=== PATIENT | male | born 1950 | race Caucasian/White ===

== ENCOUNTER 2017-07-12 10:50 | Inpatient (IN) | payer MEDICARE, MEDICAID ==
[2017-07-12] MEDS: Sodium Chloride 0.9% 5 ML Syringe FLUSH PRN (14:59)
[2017-07-12 15:10] LABS: CHLORIDE,CL 102 mmol/L (98-115); SODIUM,NA 140 mmol/L (136-145)
[2017-07-12] MEDS ORDERED: Insulin Aspart 100 Units/ML 3 ML Pen SUBCUT PRN (15:10)
[2017-07-12] MEDS ORDERED: hydrOXYzine HCl 25 MG Tab PO PRN (17:25)
[2017-07-12] MEDS ORDERED: ClonazePAM 0.5 MG Tab PO PRN (17:29)
[2017-07-12] MEDS ORDERED: Nitroglycerin 0.4 MG Tab.SL SL PRN (17:29)
[2017-07-12] MEDS ORDERED: Insulin Aspart 100 Units/ML 3 ML Pen SUBCUT SCH (17:30)
[2017-07-12] MEDS: hydrOXYzine HCl 25 MG Tab PO PRN (17:50)
[2017-07-12] MEDS ORDERED: diphenhydrAMINE 25 MG Cap PO PRN (18:52)
[2017-07-12] MEDS: Insulin Aspart 100 Units/ML 3 ML Pen SUBCUT SCH (19:16)
[2017-07-12] MEDS: Heparin Sodium 5,000 Units/ML Vial SUBCUT SCH (20:14)
[2017-07-12] MEDS: Acetaminophen 500 MG Tab PO PRN (20:22)
[2017-07-12] MEDS ORDERED: Insulin Detemir 100 Units/ML 3 ML Pen SUBCUT SCH (21:00)
[2017-07-12] MEDS: atorvaSTATin 40 MG Tab PO SCH (21:02)
[2017-07-12] MEDS: metroNIDAZOLE/Normal Saline 500 MG in Premix Bag 1 BAG IV SCH (21:38)
[2017-07-13] MEDS: hydrOXYzine HCl 25 MG Tab PO PRN ×2 (00:24→06:32)
[2017-07-13] MEDS: metroNIDAZOLE/Normal Saline 500 MG in Premix Bag 1 BAG IV SCH ×3 (05:01→22:24)
[2017-07-13] MEDS ORDERED: glipiZIDE 5 MG Tab.ER PO SCH (07:30)
[2017-07-13] MEDS: Heparin Sodium 5,000 Units/ML Vial SUBCUT SCH ×2 (07:56→20:17)
[2017-07-13] MEDS: Insulin Aspart 100 Units/ML 3 ML Pen SUBCUT SCH ×3 (07:56→17:58)
[2017-07-13] MEDS: Acetaminophen 500 MG Tab PO PRN (07:58)
[2017-07-13] MEDS: Clopidogrel 75 MG Tab PO SCH (08:33)
[2017-07-13] MEDS: Aspirin 81 MG Tab.EC PO SCH (08:33)
[2017-07-13] MEDS: Hydrochlorothiazide 25 MG Tab PO SCH (08:33)
[2017-07-13] MEDS: Multivitamins with Minerals/Iron/Folic Acid/Lycopene Tab PO SCH (08:33)
[2017-07-13] MEDS: Lisinopril 20 MG Tab PO SCH (08:34)
[2017-07-13] MEDS: Metoprolol Succinate 50 MG Tab.ER PO SCH (08:34)
[2017-07-13] MEDS: Cyanocobalamin (Vitamin B12) 500 MCG Tab PO SCH (08:34)
--- NOTE | 2017-07-13 08:50 | PCM.PN ---
- General Info Date of Service: 07/13/17 Admission Dx/Problem (Free Text): Mr. Ortiz reports that his foot seems to be doing a little better today without any further drainage from the toe and improvement in redness of the foot. Continues to have erythema more proximally. Biggest concern this morning is regarding diffuse itching and dermatitis that has developed since admission. Nursing reports that this was mildly present yesterday on admission most prominent on the upper extremities which was thought to be due to clindamycin which was added as a drug allergy, but the patient is unsure about the timeline. Regardless, he states that the rash and itching is considerably worse today. Wonders when he will be able to go home, and in particular wonders if he can leave to go to a volleyball match today. Admits to generalized malaise and pruritis. Denies fever, chills, headache, sore throat, tongue swelling, shortness of breath, chest pain, or other new concerns. - Patient Data Vitals - Most Recent: Last Vital Signs Temp 37.4 C 07/13/17 06:51 Pulse 81 07/13/17 08:34 Resp 20 07/13/17 06:51 BP 132/64 07/13/17 08:34 Pulse Ox 96 07/13/17 06:51 Weight - Most Recent: 135.624 kg I&O - Last 24 Hours: Intake & Output 07/12/17 07/13/17 07/13/17 22:59 06:59 14:59 Intake Total 922 200 Balance 922 200 Lab Results Last 24 Hours: Laboratory Results - last 24 hr 07/12/17 07/12/17 07/12/17 Range/Units 14:30 14:30 14:30 WBC 10.0 (5.0-10.0) 10^3/uL RBC 3.43 L (4.50-6.00) 10^6/uL Hgb 9.1 L (13.0-17.0) g/dL Hct 28.8 L (40.0-52.0) % MCV 83.8 (82.0-92.0) fL MCH 26.6 L (27.0-31.0) pg MCHC 31.7 L (32.0-36.0) g/dL RDW 13.6 (11.5-14.5) % Plt Count 360 H (150-300) 10^3/uL MPV 6.4 L (7.4-10.4) fL Neut % (Auto) 78.4 H (50.0-70.0) % Lymph % (Auto) 9.3 L (20.0-40.0) % Dawson % (Auto) 8.3 H (2.0-8.0) % Eos % (Auto) 3.8 H (1.0-3.0) % Baso % (Auto) 0.2 (0.0-1.0) % Neut # (Auto) 7.9 H (2.5-7.0) 10^3/uL Lymph # (Auto) 0.9 L (1.0-4.0) 10^3/uL Dawson # (Auto) 0.8 (0.1-0.8) 10^3/uL Eos # (Auto) 0.4 H (0.1-0.3) 10^3/uL Baso # (Auto) 0.0 (0.0-0.1) 10^3/uL ESR 40 H (0-15) mm/hr Sodium 140 (136-145) mmol/L Potassium 3.7 (3.3-5.3) mmol/L Chloride 102 (98-115) mmol/L Carbon Dioxide 24.3 (21.0-32.0) mmol/L BUN 12 (6-25) mg/dL Creatinine 0.77 (0.51-1.17) mg/dL Est Cr Clr Drug Dosing 118.99 mL/min Estimated GFR (MDRD) > 60 mL/min Glucose 253 H (70-110) mg/dL POC Glucose (74-106) mg/dl Uric Acid (2.6-7.2) mg/dL Calcium 8.5 L (8.7-10.3) mg/dL Total Bilirubin 0.3 (0.2-1.0) mg/dL AST 35 (15-37) U/L ALT 48 (12-78) U/L Alkaline Phosphatase 103 (46-116) IU/L Total Protein 6.5 (6.4-8.2) g/dL Albumin 3.06 (3.00-4.80) g/dL 07/12/17 07/12/17 07/13/17 Range/Units 14:30 17:19 06:29 WBC (5.0-10.0) 10^3/uL RBC (4.50-6.00) 10^6/uL Hgb (13.0-17.0) g/dL Hct (40.0-52.0) % MCV (82.0-92.0) fL MCH (27.0-31.0) pg MCHC (32.0-36.0) g/dL RDW (11.5-14.5) % Plt Count (150-300) 10^3/uL MPV (7.4-10.4) fL Neut % (Auto) (50.0-70.0) % Lymph % (Auto) (20.0-40.0) % Dawson % (Auto) (2.0-8.0) % Eos % (Auto) (1.0-3.0) % Baso % (Auto) (0.0-1.0) % Neut # (Auto) (2.5-7.0) 10^3/uL Lymph # (Auto) (1.0-4.0) 10^3/uL Dawson # (Auto) (0.1-0.8) 10^3/uL Eos # (Auto) (0.1-0.3) 10^3/uL Baso # (Auto) (0.0-0.1) 10^3/uL ESR (0-15) mm/hr Sodium (136-145) mmol/L Potassium (3.3-5.3) mmol/L Chloride (98-115) mmol/L Carbon Dioxide (21.0-32.0) mmol/L BUN (6-25) mg/dL Creatinine (0.51-1.17) mg/dL Est Cr Clr Drug Dosing mL/min Estimated GFR (MDRD) mL/min Glucose (70-110) mg/dL POC Glucose 207 H 215 H (74-106) mg/dl Uric Acid 4.2 (2.6-7.2) mg/dL Calcium (8.7-10.3) mg/dL Total Bilirubin (0.2-1.0) mg/dL AST (15-37) U/L ALT (12-78) U/L Alkaline Phosphatase (46-116) IU/L Total Protein (6.4-8.2) g/dL Albumin (3.00-4.80) g/dL 07/13/17 Range/Units 07:10 WBC 9.2 (5.0-10.0) 10^3/uL RBC 3.53 L (4.50-6.00) 10^6/uL Hgb 9.0 L (13.0-17.0) g/dL Hct 29.4 L (40.0-52.0) % MCV 83.5 (82.0-92.0) fL MCH 25.5 L (27.0-31.0) pg MCHC 30.6 L (32.0-36.0) g/dL RDW 13.5 (11.5-14.5) % Plt Count 369 H (150-300) 10^3/uL MPV 7.1 L (7.4-10.4) fL Neut % (Auto) (50.0-70.0) % Lymph % (Auto) (20.0-40.0) % Dawson % (Auto) (2.0-8.0) % Eos % (Auto) (1.0-3.0) % Baso % (Auto) (0.0-1.0) % Neut # (Auto) (2.5-7.0) 10^3/uL Lymph # (Auto) (1.0-4.0) 10^3/uL Dawson # (Auto) (0.1-0.8) 10^3/uL Eos # (Auto) (0.1-0.3) 10^3/uL Baso # (Auto) (0.0-0.1) 10^3/uL ESR 37 H (0-15) mm/hr Sodium (136-145) mmol/L Potassium (3.3-5.3) mmol/L Chloride (98-115) mmol/L Carbon Dioxide (21.0-32.0) mmol/L BUN (6-25) mg/dL Creatinine (0.51-1.17) mg/dL Est Cr Clr Drug Dosing mL/min Estimated GFR (MDRD) mL/min Glucose (70-110) mg/dL POC Glucose (74-106) mg/dl Uric Acid (2.6-7.2) mg/dL Calcium (8.7-10.3) mg/dL Total Bilirubin (0.2-1.0) mg/dL AST (15-37) U/L ALT (12-78) U/L Alkaline Phosphatase (46-116) IU/L Total Protein (6.4-8.2) g/dL Albumin (3.00-4.80) g/dL Med Orders - Current: Current Medications Acetaminophen (Tylenol Extra Strength) 500 mg PO Q4H PRN PRN Reason: Pain/Fever Last Admin: 07/13/17 07:58 Dose: 500 mg Aspirin (Halfprin) 81 mg PO DAILY [facility] Last Admin: 07/13/17 08:33 Dose: 81 mg Atorvastatin Calcium (Lipitor) 40 mg PO BEDTIME [facility] Last Admin: 07/12/17 21:02 Dose: 40 mg Clonazepam (Klonopin) 0.5 mg PO BEDTIME PRN PRN Reason: Insomnia Clopidogrel Bisulfate (Plavix) 75 mg PO DAILY [facility] Last Admin: 07/13/17 08:33 Dose: 75 mg Cyanocobalamin (Vitamin B12) 1,000 mcg PO DAILY [facility] Last Admin: 07/13/17 08:34 Dose: 1,000 mcg Glipizide (Glucotrol Xl) 10 mg PO ACBREAKFAST [facility] Last Admin: 07/13/17 07:56 Dose: 10 mg Heparin Sodium (Porcine) (Heparin Sodium) 5,000 units SUBCUT Q12H [facility] Last Admin: 07/13/17 07:56 Dose: 5,000 units Hydrochlorothiazide (Hydrochlorothiazide) 25 mg PO DAILY [facility] Last Admin: 07/13/17 08:33 Dose: 25 mg Hydroxyzine HCl (Atarax) 25 mg PO Q6H PRN PRN Reason: Itching Last Admin: 07/13/17 06:32 Dose: 25 mg Vancomycin HCl 1.5 gm/ Sodium (Chloride) 280 mls @ 112 mls/hr IV Q12H [facility] Last Admin: 07/13/17 06:30 Dose: 112 mls/hr Metronidazole 500 mg/ Premix 100 mls @ 100 mls/hr IV Q8H [facility] Last Admin: 07/13/17 05:01 Dose: 100 mls/hr Insulin Aspart (Novolog) 0 unit SUBCUT TIDMEALS [facility] PRN Reason: Protocol Last Admin: 07/13/17 07:56 Dose: 6 units Insulin Detemir (Levemir) 68 unit SUBCUT BEDTIME [facility] Last Admin: 07/12/17 21:03 Dose: 68 units Lisinopril (Prinivil) 20 mg PO DAILY [facility] Last Admin: 07/13/17 08:34 Dose: 20 mg Metoprolol Succinate (Toprol Xl) 50 mg PO DAILY [facility] Last Admin: 07/13/17 08:34 Dose: 50 mg Multivitamins/Minerals (Centrum) 1 tab PO DAILY [facility] Last Admin: 07/13/17 08:33 Dose: 1 tab Nitroglycerin (Nitrostat) 0.4 mg SL Q5M PRN PRN Reason: Chest Pain Sodium Chloride (Syrex Flush) 5 ml FLUSH Q8HR PRN PRN Reason: Keep Vein Open Last Admin: 07/12/17 14:59 Dose: 5 ml Vancomycin HCl (Pharmacy To Dose - Vancomycin) 1 dose .XX ASDIRECTED [facility] Discontinued Medications Diphenhydramine HCl (Benadryl) 25 mg PO Q6H PRN PRN Reason: Itching Hydroxyzine HCl (Atarax) 25 mg PO Q4H PRN PRN Reason: Itching Vancomycin HCl 1.5 gm/ Sodium (Chloride) 280 mls @ 112 mls/hr IV Q12H [facility] Last Admin: 07/12/17 14:58 Dose: 112 mls/hr Insulin Aspart (Novolog) 0 unit SUBCUT TIDAC PRN; Protocol PRN Reason: Blood Glucose Last Admin: 07/12/17 17:51 Dose: 6 unit - Exam Physical Findings Comments:: GENERAL: Uncomfortable-appearing adult male sitting in bedside chair in no acute distress. HEENT: Normocephalic, atraumatic. Conjunctiva clear. Mucous membranes moist, posterior pharynx unremarkable. NECK: Supple, no masses. CV: Regular rate and rhythm, no murmurs, rubs, or gallops. 2+ radial pulses. PULMONARY: Normal effort, clear to auscultation bilaterally, no wheezes, rales, or rhonchi. ABDOMEN: Positive bowel sounds, soft, nontender, nondistended. MUSCULOSKELETAL: Moves all extremities. NEUROLOGICAL: No obvious deficits. CN II-XII intact. Poor sensation to touch in bilateral distal lower extremities. DERMATOLOGIC: RLE with 1+ pitting edema of the leg, ankle, and foot with minimal warmth and diffuse seun color. Right great toe with 1.25cm dried eschar without drainage. Diffuse papular blanching dermatitis of bilateral upper extremities, torso, and bilateral lower extremities. PSYCHIATRIC: Alert, interactive. - Problem List Review Problem List Initiated/Reviewed/Updated: Yes - My Orders Last 24 Hours: My Active Orders 07/12/17 19:14 Acetaminophen [Tylenol Extra Strength] 500 mg PO Q4H PRN 07/13/17 06:00 Vancomycin 1.5 gm Sodium Chloride 0.9% [Normal Saline] 250 ml IV Q12H 07/13/17 07:10 CBC WITH MANUAL DIFF [HEME] AM ESR [SEDIMENTATION RATE MANUAL] [HEME] AM 07/13/17 08:42 Guaiac [OCCULT BLOOD DIAGNOSTIC] [OP] Routine 07/14/17 05:11 BASIC METABOLIC PANEL,BMP [CHEM] AM CBC WITH AUTO DIFF [HEME] AM ESR [SEDIMENTATION RATE MANUAL] [HEME] AM FOLATE [REF] Routine IRON PNL (FE, TIBC, WENCESLAO, %SAT) [REF] Routine VITAMIN B12 [REF] Routine 07/14/17 05:30 VANCOMYCIN TROUGH [CHEM] Routine - Assessment Assessment:: 66yoM with hx of uncontrolled DMT2, HTN, HLD, CAD, and obesity admitted 07/12/17 for RLE diabetic foot ulcer and cellulitis. # RLE diabetic foot ulcer and cellulitis: Interval improvement in cellulitis and R toe without drainage or progression of eschar. Also improvement in WBC and ESR. Blood cultures with no growth thus far and wound culture pending. XR without abnormality. Due to concern for drug-induced dermatitis (see below), will change vancomycin to linezolid and continue metronidazole. Recheck CB and ESR tomorrow. Consider MRI in 2 days, when available, if not having ongoing improvement and concern for osteomyelitis. Continue nonweight bearing. PT would like to defer ordering boot and proceeding with therapy until improvement in clinical status. Plan for outpatient podiatry follow-up. # Dermatitis: Diffuse recent-onset dermatitis consistent with drug eruption. There is question if this was mildly present on admission and clindamycin was subsequently added to his allergies. The patient is unsure of the timeline, but regardless the dermatitis has become more widespread and severe since admission. New medications include vancomycin and metronidazole, of which vancomycin would be more likely associated with drug eruption, so will change to linezolid and provide symptomatic treatment with H1 and H2 antagonists diphenhydramine and famotidine. Would like to hold off on any glucocorticoid treatment given current infection and uncontrolled diabetes. # DMT2: Uncontrolled with A1c 9.1 and BGs here running in the 200s despite home regimen of insulin detemir and high dose ISS. Home regimen also includes glipizide, though patient has an allergy to sulfa medications and may be playing a role in drug eruption, so will hold tomorrow. Holding metformin in the event imaging is needed, but will consider reinitiation in the near future. Will increase insulin detemir from 68 to 74 units and continue with high dose ISS. # Anemia: Hgb 9. New onset, normocytic anemia without known active bleeding. Obtain stool guiac, iron panel, B12, and folate. Recheck tomorrow. Continue B12 supplementation and MV. Chronic conditions: # CAD: S/P PCI to LAD. No angina. Continue Plavix, ASA, statin, and BB. # HTN: BPs well controlled. Continue HCTZ, lisinopril, and metoprolol succinate. # HLD: Continue atorvastatin. # Obesity: BMI 36. # Anxiety: Continue clonazepam prn. Hospitalization details: # FEN: No IVF. Electrolytes normal; recheck tomorrow. Diabetic/cardiac diet. # PPX: High risk of DVT=Heparin 5000un q12h. # Code status: Full. # Emergency contact: . # Disposition: Continue on inpatient status. Anticipate eventual discharge to home once improvement in acute hospitalization issues.
[2017-07-13] MEDS ORDERED: diphenhydrAMINE 50 MG/ML SDV IVPUSH PRN ×2 (09:41→17:43)
[2017-07-13] MEDS: Famotidine 20 MG/2 ML SDV IVPUSH SCH ×2 (10:38→21:07)
[2017-07-13] MEDS: Sodium Chloride 0.9% 250 ML IV SCH (14:01)
[2017-07-13] MEDS ORDERED: Linezolid 600 MG Tab PO SCH (21:00)
[2017-07-13] MEDS ORDERED: Insulin Detemir 100 Units/ML 3 ML Pen SUBCUT SCH (21:00)
[2017-07-13] MEDS: atorvaSTATin 40 MG Tab PO SCH (21:07)
[2017-07-13] MEDS ORDERED: predniSONE 10 MG Tab PO ONE (22:07)
[2017-07-13] MEDS: diphenhydrAMINE 50 MG/ML SDV IVPUSH PRN (22:25)
[2017-07-14] MEDS: diphenhydrAMINE 50 MG/ML SDV IVPUSH PRN (04:58)
[2017-07-14] MEDS: metroNIDAZOLE/Normal Saline 500 MG in Premix Bag 1 BAG IV SCH ×2 (04:59→14:14)
[2017-07-14] MEDS: Heparin Sodium 5,000 Units/ML Vial SUBCUT SCH ×2 (07:54→21:10)
[2017-07-14] MEDS: Insulin Aspart 100 Units/ML 3 ML Pen SUBCUT SCH ×4 (07:57→21:23)
[2017-07-14 08:20] LABS: CHLORIDE,CL 99 mmol/L (98-115); SODIUM,NA 135 mmol/L (136-145)
[2017-07-14] MEDS: Multivitamins with Minerals/Iron/Folic Acid/Lycopene Tab PO SCH (08:24)
[2017-07-14] MEDS: Cyanocobalamin (Vitamin B12) 500 MCG Tab PO SCH (08:24)
[2017-07-14] MEDS: Aspirin 81 MG Tab.EC PO SCH (08:25)
[2017-07-14] MEDS: Lisinopril 20 MG Tab PO SCH (08:25)
[2017-07-14] MEDS: Clopidogrel 75 MG Tab PO SCH (08:25)
[2017-07-14] MEDS: Hydrochlorothiazide 25 MG Tab PO SCH (08:25)
[2017-07-14] MEDS: Famotidine 20 MG/2 ML SDV IVPUSH SCH ×2 (08:26→21:42)
[2017-07-14] MEDS: Metoprolol Succinate 50 MG Tab.ER PO SCH (08:26)
[2017-07-14] MEDS: metFORMIN 500 MG Tab.ER PO SCH ×2 (09:38→17:50)
[2017-07-14] MEDS: predniSONE 20 MG Tab PO SCH (09:38)
[2017-07-14] MEDS: Calamine/Zinc Oxide Lotion 118 ML Bottle TOP PRN ×2 (10:44→16:00)
--- NOTE | 2017-07-14 12:36 | PCM.PN ---
- General Info Date of Service: 07/14/17 Admission Dx/Problem (Free Text): In the last 24 hours, he had continued diffuse dermatitis and itching thought to be secondary to a drug eruption for which he was having severe symptoms despite diphenhydramine and famotidine. He was given a dose of prednisone 40mg last night which improved his symptoms. Mr. Ortiz reports this morning that his foot continues to be doing a little better today without any further drainage from the toe and improvement in redness of the foot, but he continues to have diffuse dermatitis and itching. He denies worsening in the rash and admits it may be improving a bit. Denies fever, chills, headache, sore throat, tongue swelling, shortness of breath, chest pain, or other new concerns. No nursing concerns. - Patient Data Vitals - Most Recent: Last Vital Signs Temp 36.2 C 07/14/17 06:06 Pulse 77 07/14/17 08:26 Resp 18 07/14/17 06:06 BP 140/75 07/14/17 08:26 Pulse Ox 97 07/14/17 06:30 Weight - Most Recent: 135.624 kg I&O - Last 24 Hours: Intake & Output 07/13/17 07/14/17 07/14/17 22:59 06:59 14:59 Intake Total 1175 250 Balance 1175 250 Lab Results Last 24 Hours: Laboratory Results - last 24 hr 07/13/17 07/13/17 07/14/17 Range/Units 17:18 21:05 06:15 WBC (5.0-10.0) 10^3/uL RBC (4.50-6.00) 10^6/uL Hgb (13.0-17.0) g/dL Hct (40.0-52.0) % MCV (82.0-92.0) fL MCH (27.0-31.0) pg MCHC (32.0-36.0) g/dL RDW (11.5-14.5) % Plt Count (150-300) 10^3/uL MPV (7.4-10.4) fL Neut % (Auto) (50.0-70.0) % Lymph % (Auto) (20.0-40.0) % [place] % (Auto) (2.0-8.0) % Eos % (Auto) (1.0-3.0) % Baso % (Auto) (0.0-1.0) % Neut # (Auto) (2.5-7.0) 10^3/uL Lymph # (Auto) (1.0-4.0) 10^3/uL [place] # (Auto) (0.1-0.8) 10^3/uL Eos # (Auto) (0.1-0.3) 10^3/uL Baso # (Auto) (0.0-0.1) 10^3/uL ESR (0-15) mm/hr Sodium (136-145) mmol/L Potassium (3.3-5.3) mmol/L Chloride (98-115) mmol/L Carbon Dioxide (21.0-32.0) mmol/L BUN (6-25) mg/dL Creatinine (0.51-1.17) mg/dL Est Cr Clr Drug Dosing mL/min Estimated GFR (MDRD) mL/min Glucose (70-110) mg/dL POC Glucose 276 H 283 H 302 H (74-106) mg/dl Calcium (8.7-10.3) mg/dL 07/14/17 07/14/17 07/14/17 Range/Units 07:25 07:30 11:17 WBC 11.6 H (5.0-10.0) 10^3/uL RBC 3.57 L (4.50-6.00) 10^6/uL Hgb 9.2 L (13.0-17.0) g/dL Hct 30.0 L (40.0-52.0) % MCV 84.2 (82.0-92.0) fL MCH 25.8 L (27.0-31.0) pg MCHC 30.6 L (32.0-36.0) g/dL RDW 13.4 (11.5-14.5) % Plt Count 384 H (150-300) 10^3/uL MPV 7.2 L (7.4-10.4) fL Neut % (Auto) 92.0 H (50.0-70.0) % Lymph % (Auto) 4.8 L (20.0-40.0) % [place] % (Auto) 2.6 (2.0-8.0) % Eos % (Auto) 0.5 L (1.0-3.0) % Baso % (Auto) 0.1 (0.0-1.0) % Neut # (Auto) 10.6 H (2.5-7.0) 10^3/uL Lymph # (Auto) 0.6 L (1.0-4.0) 10^3/uL [place] # (Auto) 0.3 (0.1-0.8) 10^3/uL Eos # (Auto) 0.1 (0.1-0.3) 10^3/uL Baso # (Auto) 0.0 (0.0-0.1) 10^3/uL ESR 50 H (0-15) mm/hr Sodium 135 L (136-145) mmol/L Potassium 4.2 (3.3-5.3) mmol/L Chloride 99 (98-115) mmol/L Carbon Dioxide 25.2 (21.0-32.0) mmol/L BUN 11 (6-25) mg/dL Creatinine 0.88 (0.51-1.17) mg/dL Est Cr Clr Drug Dosing 104.12 mL/min Estimated GFR (MDRD) > 60 mL/min Glucose 310 H (70-110) mg/dL POC Glucose 290 H (74-106) mg/dl Calcium 8.6 L (8.7-10.3) mg/dL Timmy Results Last 24 Hours: Microbiology 07/12/17 13:48 Wound Culture - Final Foot, Right Staphylococcus Aureus 07/12/17 14:30 Aerobic Blood Culture - Preliminary Blood NO GROWTH AFTER 1 DAY Anaerobic Blood Culture - Preliminary NO GROWTH AFTER 1 DAY Med Orders - Current: Current Medications Acetaminophen (Tylenol Extra Strength) 500 mg PO Q4H PRN PRN Reason: Pain/Fever Last Admin: 07/13/17 07:58 Dose: 500 mg Aspirin (Halfprin) 81 mg PO DAILY [facility] Last Admin: 07/14/17 08:25 Dose: 81 mg Atorvastatin Calcium (Lipitor) 40 mg PO BEDTIME [facility] Last Admin: 07/13/17 21:07 Dose: 40 mg Calamine/Zinc Oxide (Calamine Lotion) 0 ml TOP ASDIRECTED PRN PRN Reason: Itching Last Admin: 07/14/17 10:44 Dose: 1 applic Clonazepam (Klonopin) 0.5 mg PO BEDTIME PRN PRN Reason: Insomnia Last Admin: 07/13/17 22:25 Dose: 0.5 mg Clopidogrel Bisulfate (Plavix) 75 mg PO DAILY [facility] Last Admin: 07/14/17 08:25 Dose: 75 mg Cyanocobalamin (Vitamin B12) 1,000 mcg PO DAILY [facility] Last Admin: 07/14/17 08:24 Dose: 1,000 mcg Diphenhydramine HCl (Benadryl) 50 mg IVPUSH Q4H PRN PRN Reason: Itching Last Admin: 07/14/17 04:58 Dose: 50 mg Famotidine (Pepcid) 20 mg IVPUSH BID [facility] Last Admin: 07/14/17 08:26 Dose: 20 mg Heparin Sodium (Porcine) (Heparin Sodium) 5,000 units SUBCUT Q12H [facility] Last Admin: 07/14/17 07:54 Dose: 5,000 units Hydrochlorothiazide (Hydrochlorothiazide) 25 mg PO DAILY [facility] Last Admin: 07/14/17 08:25 Dose: 25 mg Metronidazole 500 mg/ Premix 100 mls @ 100 mls/hr IV Q8H [facility] Last Admin: 07/14/17 04:59 Dose: 100 mls/hr Sodium Chloride (Normal Saline) 250 mls @ 20 mls/hr IV DAILY@1400 [facility] Last Admin: 07/13/17 14:01 Dose: 20 mls/hr Linezolid (Zyvox) 300 mls @ 150 mls/hr IV Q12H [facility] Last Admin: 07/14/17 09:38 Dose: 150 mls/hr Insulin Aspart (Novolog) 0 unit SUBCUT WITHMEALSANDBED [facility] PRN Reason: Protocol Last Admin: 07/14/17 11:58 Dose: 9 units Insulin Detemir (Levemir) 80 unit SUBCUT BEDTIME [facility] Lisinopril (Prinivil) 20 mg PO DAILY [facility] Last Admin: 07/14/17 08:25 Dose: 20 mg Metformin HCl (Glucophage Xr) 1,000 mg PO BIDMEALS [facility] Last Admin: 07/14/17 09:38 Dose: 1,000 mg Metoprolol Succinate (Toprol Xl) 50 mg PO DAILY [facility] Last Admin: 07/14/17 08:26 Dose: 50 mg Multivitamins/Minerals (Centrum) 1 tab PO DAILY [facility] Last Admin: 07/14/17 08:24 Dose: 1 tab Nitroglycerin (Nitrostat) 0.4 mg SL Q5M PRN PRN Reason: Chest Pain Omeprazole (Omeprazole) 20 mg PO DAILY [facility] Prednisone (Prednisone) 40 mg PO WITHBREAKFAST [facility] Last Admin: 07/14/17 09:38 Dose: 40 mg Sodium Chloride (Syrex Flush) 5 ml FLUSH Q8HR PRN PRN Reason: Keep Vein Open Last Admin: 07/12/17 14:59 Dose: 5 ml Discontinued Medications Diphenhydramine HCl (Benadryl) 25 mg PO Q6H PRN PRN Reason: Itching Diphenhydramine HCl (Benadryl) 50 mg IVPUSH Q8H PRN PRN Reason: Itching Last Admin: 07/13/17 10:38 Dose: 50 mg Diphenhydramine HCl (Benadryl) 50 mg IVPUSH Q6H PRN PRN Reason: Itching Last Admin: 07/13/17 18:02 Dose: 50 mg Glipizide (Glucotrol Xl) 10 mg PO ACBREAKFAST [facility] Last Admin: 07/13/17 07:56 Dose: 10 mg Hydroxyzine HCl (Atarax) 25 mg PO Q4H PRN PRN Reason: Itching Hydroxyzine HCl (Atarax) 25 mg PO Q6H PRN PRN Reason: Itching Last Admin: 07/13/17 06:32 Dose: 25 mg Vancomycin HCl 1.5 gm/ Sodium (Chloride) 280 mls @ 112 mls/hr IV Q12H [facility] Last Admin: 07/12/17 14:58 Dose: 112 mls/hr Vancomycin HCl 1.5 gm/ Sodium (Chloride) 280 mls @ 112 mls/hr IV Q12H [facility] Last Admin: 07/13/17 06:30 Dose: 112 mls/hr Insulin Aspart (Novolog) 0 unit SUBCUT TIDAC PRN; Protocol PRN Reason: Blood Glucose Last Admin: 07/12/17 17:51 Dose: 6 unit Insulin Aspart (Novolog) 0 unit SUBCUT TIDMEALS [facility] PRN Reason: Protocol Last Admin: 07/14/17 07:57 Dose: 12 units Insulin Detemir (Levemir) 68 unit SUBCUT BEDTIME [facility] Last Admin: 07/12/17 21:03 Dose: 68 units Insulin Detemir (Levemir) 74 unit SUBCUT BEDTIME [facility] Last Admin: 07/13/17 21:06 Dose: 74 units Prednisone (Prednisone) 40 mg PO ONETIME ONE Stop: 07/13/17 22:08 Last Admin: 07/13/17 22:25 Dose: 40 mg Vancomycin HCl (Pharmacy To Dose - Vancomycin) 1 dose .XX ASDIRECTED [facility] - Exam Physical Findings Comments:: GENERAL: Mildly cantankerous adult male sitting in bedside chair in no acute distress. HEENT: Normocephalic, atraumatic. Conjunctiva clear. Mucous membranes moist, posterior pharynx unremarkable. NECK: Supple, no masses. CV: Regular rate and rhythm, no murmurs, rubs, or gallops. 2+ radial pulses. PULMONARY: Normal effort, clear to auscultation bilaterally, no wheezes, rales, or rhonchi. ABDOMEN: Positive bowel sounds, soft, nontender, nondistended. MUSCULOSKELETAL: Moves all extremities. NEUROLOGICAL: No obvious deficits. DERMATOLOGIC: RLE with 1+ pitting edema of the leg, ankle, and foot with overlying redness, but no warmth, and with interval improvement in area affected since evaluation yesterday. Right great toe with 1.25cm dried eschar without drainage and no tenderness to palpation of toe. Diffuse papular blanching dermatitis of bilateral upper extremities, torso, and bilateral lower extremities. PSYCHIATRIC: Alert, interactive. - Problem List Review Problem List Initiated/Reviewed/Updated: Yes - My Orders Last 24 Hours: My Active Orders 07/13/17 20:00 Linezolid [Zyvox] 300 ml IV Q12H 07/13/17 22:08 diphenhydrAMINE [Benadryl] 50 mg IVPUSH Q4H PRN 07/14/17 05:11 FOLATE [REF] Routine IRON PNL (FE, TIBC, WENCESLAO, %SAT) [REF] Routine VITAMIN B12 [REF] Routine 07/14/17 09:15 metFORMIN [Glucophage XR] 1,000 mg PO BIDMEALS 07/14/17 09:16 Calamine/Zinc Oxide [Calamine Lotion] See Dose Instructions TOP ASDIRECTED PRN Insulin Detemir [Levemir] 80 unit SUBCUT BEDTIME 07/14/17 09:23 Blood Glucose Check, Bedside [RC] QIDACANDBED 07/14/17 09:30 predniSONE 40 mg PO WITHBREAKFAST 07/14/17 12:00 Insulin Aspart [NovoLOG] See Protocol SUBCUT WITHMEALSANDBED 07/15/17 09:00 Omeprazole 20 mg PO DAILY - Assessment Assessment:: 66yoM with hx of uncontrolled DMT2, HTN, HLD, CAD, and obesity admitted 07/12/17 for RLE diabetic foot ulcer and cellulitis. # RLE diabetic foot ulcer and cellulitis: Interval improvement in cellulitis and R toe without drainage or progression of eschar. Slight worsening of WBC and ESR, likely secondary to prednisone initiation, as below. Blood cultures with no growth x2 days and wound culture with preliminary reading of Staph. aureus. XR without abnormality. Venous ultrasound pending. Due to concern for drug-induced dermatitis (see below), vancomycin was changed to linezolid on . D/c metronidazole given Staph growing on culture. Recheck CBC and ESR tomorrow. If continued improvement, will liberate weightbearing and consider PT evaluation tomorrow if warranted. Plan for outpatient podiatry follow-up. # Drug eruption: Diffuse dermatitis consistent with drug eruption. This was mildly present on admission and clindamycin was subsequently added to his allergies. Despite cessation of clindamycin, the dermatitis became more widespread and severe, likely secondary to vancomycin which he had never had before. Symptomatic treatment with H1 and H2 antagonists diphenhydramine and famotidine initiated, but not adequate at symptom control so prednisone started. Discussed the hesitation of steroids given current infection and uncontrolled diabetes, but given the severity of the eruption and lack of successful control with non-steroid medications, will proceed with prednisone 40mg daily. Will also provide calamine lotion at the patient's request. # DMT2: Uncontrolled with A1c 9.1 and BGs here running in the 200s despite home regimen of insulin detemir and high dose ISS. Anticipate worsening with initiation of steroids, as above. Holding glipidize given sulfa allergy, though he states he has been taking this for years. Restart metformin. Increase insulin detemir from 74 to 80 units and high dose ISS with meals and also bedtime. # Anemia: Hgb 9. New onset, normocytic anemia without known active bleeding. Stool guiac negative. Iron panel, B12, and folate pending. Recheck tomorrow. Continue B12 supplementation and MV. Chronic conditions: # CAD: S/P PCI to LAD. No angina. Continue Plavix, ASA, statin, and BB. # HTN: BPs well controlled. Continue HCTZ, lisinopril, and metoprolol succinate. # HLD: Continue atorvastatin. # Obesity: BMI 36. # Anxiety: Continue clonazepam prn. Hospitalization details: # FEN: No IVF. Electrolytes normal; recheck tomorrow. Diabetic/cardiac diet. # PPX: High risk of DVT=Heparin 5000un q12h. # Code status: Full. # Emergency contact: . # Disposition: Continue on inpatient status. Anticipate eventual discharge to home once improvement in acute hospitalization issues.
[2017-07-14] MEDS: Sodium Chloride 0.9% 250 ML IV SCH (14:14)
[2017-07-14] MEDS: atorvaSTATin 40 MG Tab PO SCH (21:10)
[2017-07-14] MEDS: Insulin Detemir 100 Units/ML 3 ML Pen SUBCUT SCH (21:24)
[2017-07-15] MEDS: predniSONE 20 MG Tab PO SCH (07:56)
[2017-07-15] MEDS: metFORMIN 500 MG Tab.ER PO SCH ×2 (07:56→17:41)
[2017-07-15] MEDS: Heparin Sodium 5,000 Units/ML Vial SUBCUT SCH ×2 (07:57→21:19)
[2017-07-15] MEDS: Insulin Aspart 100 Units/ML 3 ML Pen SUBCUT SCH ×4 (07:57→21:32)
[2017-07-15 08:17] LABS: CHLORIDE,CL 99 mmol/L (98-115); SODIUM,NA 136 mmol/L (136-145)
[2017-07-15] MEDS: Famotidine 20 MG/2 ML SDV IVPUSH SCH (08:55)
[2017-07-15] MEDS: Sodium Chloride 0.9% 5 ML Syringe FLUSH PRN (08:57)
[2017-07-15] MEDS: Clopidogrel 75 MG Tab PO SCH (08:59)
[2017-07-15] MEDS: Cyanocobalamin (Vitamin B12) 500 MCG Tab PO SCH (08:59)
[2017-07-15] MEDS: Aspirin 81 MG Tab.EC PO SCH (08:59)
[2017-07-15] MEDS: Multivitamins with Minerals/Iron/Folic Acid/Lycopene Tab PO SCH (08:59)
[2017-07-15] MEDS ORDERED: Omeprazole 20 MG Cap.CR PO SCH (09:00)
[2017-07-15] MEDS: Metoprolol Succinate 50 MG Tab.ER PO SCH (09:37)
[2017-07-15] MEDS: Hydrochlorothiazide 25 MG Tab PO SCH (09:37)
[2017-07-15] MEDS: Lisinopril 20 MG Tab PO SCH (09:37)
[2017-07-15] MEDS ORDERED: diphenhydrAMINE 25 MG Cap PO PRN (09:42)
[2017-07-15] MEDS: Linezolid 600 MG Tab PO SCH ×2 (10:00→21:43)
[2017-07-15] MEDS ORDERED: Linezolid 600 MG in Premix Bag 1 BAG IV ONE (10:00)
[2017-07-15] MEDS: glipiZIDE 5 MG Tab.ER PO SCH (10:12)
[2017-07-15] MEDS: Acetaminophen 500 MG Tab PO PRN (17:43)
[2017-07-15] MEDS: Insulin Detemir 100 Units/ML 3 ML Pen SUBCUT SCH (21:23)
[2017-07-15] MEDS: Famotidine 20 MG Tab PO SCH (21:29)
[2017-07-15] MEDS: atorvaSTATin 40 MG Tab PO SCH (21:29)
--- NOTE | 2017-07-15 23:39 | PCM.PN ---
- General Info Date of Service: 07/15/17 Subjective Update: Mr. Ortiz reports feeling well this morning. States he slept better last night than he has and that his rash is much less itchy and irritating. Right foot continues to improve without any further drainage from the toe and improvement in redness of the foot. Denies fever, chills, headache, sore throat, tongue swelling, shortness of breath, chest pain, or other new concerns. Nursing feels that he is doing much better today. - Patient Data Vitals - Most Recent: Last Vital Signs Temp 36.7 C 07/15/17 22:27 Pulse 81 07/15/17 22:27 Resp 16 07/15/17 22:27 BP 151/76 H 07/15/17 22:27 Pulse Ox 96 07/15/17 22:27 Weight - Most Recent: 135.624 kg I&O - Last 24 Hours: Intake & Output 07/15/17 07/15/17 07/16/17 14:59 22:59 06:59 Intake Total 1210 585 Balance 1210 585 Lab Results Last 24 Hours: Laboratory Results - last 24 hr 07/15/17 07/15/17 07/15/17 Range/Units 06:52 07:45 07:45 WBC 16.9 H (5.0-10.0) 10^3/uL RBC 3.53 L (4.50-6.00) 10^6/uL Hgb 9.7 L (13.0-17.0) g/dL Hct 29.5 L (40.0-52.0) % MCV 83.6 (82.0-92.0) fL MCH 27.5 (27.0-31.0) pg MCHC 32.9 (32.0-36.0) g/dL RDW 13.4 (11.5-14.5) % Plt Count 392 H (150-300) 10^3/uL MPV 6.6 L (7.4-10.4) fL Neut % (Auto) 78.7 H (50.0-70.0) % Lymph % (Auto) 9.1 L (20.0-40.0) % [place] % (Auto) 8.0 (2.0-8.0) % Eos % (Auto) 3.4 H (1.0-3.0) % Baso % (Auto) 0.8 (0.0-1.0) % Neut # (Auto) 13.3 H (2.5-7.0) 10^3/uL Lymph # (Auto) 1.5 (1.0-4.0) 10^3/uL [place] # (Auto) 1.4 H (0.1-0.8) 10^3/uL Eos # (Auto) 0.6 H (0.1-0.3) 10^3/uL Baso # (Auto) 0.1 (0.0-0.1) 10^3/uL ESR 41 H (0-15) mm/hr Sodium 136 (136-145) mmol/L Potassium 3.7 (3.3-5.3) mmol/L Chloride 99 (98-115) mmol/L Carbon Dioxide 25.3 (21.0-32.0) mmol/L BUN 18 (6-25) mg/dL Creatinine 1.03 (0.51-1.17) mg/dL Est Cr Clr Drug Dosing 88.95 mL/min Estimated GFR (MDRD) > 60 mL/min Glucose 207 H (70-110) mg/dL POC Glucose 200 H (74-106) mg/dl Calcium 8.8 (8.7-10.3) mg/dL 07/15/17 07/15/17 07/15/17 Range/Units 11:30 14:57 17:30 WBC (5.0-10.0) 10^3/uL RBC (4.50-6.00) 10^6/uL Hgb (13.0-17.0) g/dL Hct (40.0-52.0) % MCV (82.0-92.0) fL MCH (27.0-31.0) pg MCHC (32.0-36.0) g/dL RDW (11.5-14.5) % Plt Count (150-300) 10^3/uL MPV (7.4-10.4) fL Neut % (Auto) (50.0-70.0) % Lymph % (Auto) (20.0-40.0) % [place] % (Auto) (2.0-8.0) % Eos % (Auto) (1.0-3.0) % Baso % (Auto) (0.0-1.0) % Neut # (Auto) (2.5-7.0) 10^3/uL Lymph # (Auto) (1.0-4.0) 10^3/uL [place] # (Auto) (0.1-0.8) 10^3/uL Eos # (Auto) (0.1-0.3) 10^3/uL Baso # (Auto) (0.0-0.1) 10^3/uL ESR (0-15) mm/hr Sodium (136-145) mmol/L Potassium (3.3-5.3) mmol/L Chloride (98-115) mmol/L Carbon Dioxide (21.0-32.0) mmol/L BUN (6-25) mg/dL Creatinine (0.51-1.17) mg/dL Est Cr Clr Drug Dosing mL/min Estimated GFR (MDRD) mL/min Glucose (70-110) mg/dL POC Glucose 304 H 353 H 300 H (74-106) mg/dl Calcium (8.7-10.3) mg/dL 07/15/17 Range/Units 21:25 WBC (5.0-10.0) 10^3/uL RBC (4.50-6.00) 10^6/uL Hgb (13.0-17.0) g/dL Hct (40.0-52.0) % MCV (82.0-92.0) fL MCH (27.0-31.0) pg MCHC (32.0-36.0) g/dL RDW (11.5-14.5) % Plt Count (150-300) 10^3/uL MPV (7.4-10.4) fL Neut % (Auto) (50.0-70.0) % Lymph % (Auto) (20.0-40.0) % [place] % (Auto) (2.0-8.0) % Eos % (Auto) (1.0-3.0) % Baso % (Auto) (0.0-1.0) % Neut # (Auto) (2.5-7.0) 10^3/uL Lymph # (Auto) (1.0-4.0) 10^3/uL [place] # (Auto) (0.1-0.8) 10^3/uL Eos # (Auto) (0.1-0.3) 10^3/uL Baso # (Auto) (0.0-0.1) 10^3/uL ESR (0-15) mm/hr Sodium (136-145) mmol/L Potassium (3.3-5.3) mmol/L Chloride (98-115) mmol/L Carbon Dioxide (21.0-32.0) mmol/L BUN (6-25) mg/dL Creatinine (0.51-1.17) mg/dL Est Cr Clr Drug Dosing mL/min Estimated GFR (MDRD) mL/min Glucose (70-110) mg/dL POC Glucose 256 H (74-106) mg/dl Calcium (8.7-10.3) mg/dL Timmy Results Last 24 Hours: Microbiology 07/12/17 14:30 Aerobic Blood Culture - Preliminary Blood NO GROWTH AFTER 3 DAYS Anaerobic Blood Culture - Preliminary NO GROWTH AFTER 3 DAYS Med Orders - Current: Current Medications Acetaminophen (Tylenol Extra Strength) 500 mg PO Q4H PRN PRN Reason: Pain/Fever Last Admin: 07/15/17 17:43 Dose: 500 mg Aspirin (Halfprin) 81 mg PO DAILY [facility] Last Admin: 07/15/17 08:59 Dose: 81 mg Atorvastatin Calcium (Lipitor) 40 mg PO BEDTIME [facility] Last Admin: 07/15/17 21:29 Dose: 40 mg Calamine/Zinc Oxide (Calamine Lotion) 0 ml TOP ASDIRECTED PRN PRN Reason: Itching Last Admin: 07/14/17 16:00 Dose: 1 applic Clonazepam (Klonopin) 0.5 mg PO BEDTIME PRN PRN Reason: Insomnia Last Admin: 07/13/17 22:25 Dose: 0.5 mg Clopidogrel Bisulfate (Plavix) 75 mg PO DAILY [facility] Last Admin: 07/15/17 08:59 Dose: 75 mg Cyanocobalamin (Vitamin B12) 1,000 mcg PO DAILY [facility] Last Admin: 07/15/17 08:59 Dose: 1,000 mcg Diphenhydramine HCl (Benadryl) 50 mg IVPUSH Q4H PRN PRN Reason: Itching Last Admin: 07/14/17 04:58 Dose: 50 mg Diphenhydramine HCl (Benadryl) 50 mg PO Q4H PRN PRN Reason: Itching Last Admin: 07/15/17 21:30 Dose: 50 mg Famotidine (Pepcid) 20 mg PO BID [facility] Last Admin: 07/15/17 21:29 Dose: 20 mg Glipizide (Glucotrol Xl) 10 mg PO WITHBREAKFAST [facility] Last Admin: 07/15/17 10:12 Dose: 10 mg Heparin Sodium (Porcine) (Heparin Sodium) 5,000 units SUBCUT Q12H [facility] Last Admin: 07/15/17 21:19 Dose: 5,000 units Hydrochlorothiazide (Hydrochlorothiazide) 25 mg PO DAILY [facility] Last Admin: 07/15/17 09:37 Dose: 25 mg Insulin Aspart (Novolog) 0 unit SUBCUT WITHMEALSANDBED [facility] PRN Reason: Protocol Last Admin: 07/15/17 21:32 Dose: 9 units Insulin Detemir (Levemir) 80 unit SUBCUT BEDTIME [facility] Last Admin: 07/15/17 21:23 Dose: 80 units Linezolid (Zyvox) 600 mg PO Q12H [facility] Last Admin: 07/15/17 21:43 Dose: 600 mg Lisinopril (Prinivil) 20 mg PO DAILY [facility] Last Admin: 07/15/17 09:37 Dose: 20 mg Metformin HCl (Glucophage Xr) 1,000 mg PO BIDMEALS [facility] Last Admin: 07/15/17 17:41 Dose: 1,000 mg Metoprolol Succinate (Toprol Xl) 50 mg PO DAILY [facility] Last Admin: 07/15/17 09:37 Dose: 50 mg Multivitamins/Minerals (Centrum) 1 tab PO DAILY [facility] Last Admin: 07/15/17 08:59 Dose: 1 tab Nitroglycerin (Nitrostat) 0.4 mg SL Q5M PRN PRN Reason: Chest Pain Prednisone (Prednisone) 40 mg PO WITHBREAKFAST [facility] Last Admin: 07/15/17 07:56 Dose: 40 mg Sodium Chloride (Syrex Flush) 5 ml FLUSH Q8HR PRN PRN Reason: Keep Vein Open Last Admin: 07/15/17 08:57 Dose: 5 ml Discontinued Medications Diphenhydramine HCl (Benadryl) 25 mg PO Q6H PRN PRN Reason: Itching Diphenhydramine HCl (Benadryl) 50 mg IVPUSH Q8H PRN PRN Reason: Itching Last Admin: 07/13/17 10:38 Dose: 50 mg Diphenhydramine HCl (Benadryl) 50 mg IVPUSH Q6H PRN PRN Reason: Itching Last Admin: 07/13/17 18:02 Dose: 50 mg Famotidine (Pepcid) 20 mg IVPUSH BID [facility] Last Admin: 07/15/17 08:55 Dose: 20 mg Glipizide (Glucotrol Xl) 10 mg PO ACBREAKFAST [facility] Last Admin: 07/13/17 07:56 Dose: 10 mg Hydroxyzine HCl (Atarax) 25 mg PO Q4H PRN PRN Reason: Itching Hydroxyzine HCl (Atarax) 25 mg PO Q6H PRN PRN Reason: Itching Last Admin: 07/13/17 06:32 Dose: 25 mg Vancomycin HCl 1.5 gm/ Sodium (Chloride) 280 mls @ 112 mls/hr IV Q12H [facility] Last Admin: 07/12/17 14:58 Dose: 112 mls/hr Vancomycin HCl 1.5 gm/ Sodium (Chloride) 280 mls @ 112 mls/hr IV Q12H [facility] Last Admin: 07/13/17 06:30 Dose: 112 mls/hr Metronidazole 500 mg/ Premix 100 mls @ 100 mls/hr IV Q8H [facility] Last Admin: 07/14/17 14:14 Dose: 100 mls/hr Sodium Chloride (Normal Saline) 250 mls @ 20 mls/hr IV DAILY@1400 [facility] Last Admin: 07/14/17 14:14 Dose: 20 mls/hr Linezolid (Zyvox) 300 mls @ 150 mls/hr IV Q12H [facility] Last Admin: 07/15/17 09:35 Dose: Not Given Linezolid 600 mg/ Premix 300 mls @ 300 mls/hr IV ONETIME ONE Stop: 07/15/17 10:59 Last Admin: 07/15/17 10:12 Dose: 300 mls/hr Insulin Aspart (Novolog) 0 unit SUBCUT TIDAC PRN; Protocol PRN Reason: Blood Glucose Last Admin: 07/12/17 17:51 Dose: 6 unit Insulin Aspart (Novolog) 0 unit SUBCUT TIDMEALS [facility] PRN Reason: Protocol Last Admin: 07/14/17 07:57 Dose: 12 units Insulin Detemir (Levemir) 68 unit SUBCUT BEDTIME [facility] Last Admin: 07/12/17 21:03 Dose: 68 units Insulin Detemir (Levemir) 74 unit SUBCUT BEDTIME [facility] Last Admin: 07/13/17 21:06 Dose: 74 units Omeprazole (Omeprazole) 20 mg PO DAILY [facility] Prednisone (Prednisone) 40 mg PO ONETIME ONE Stop: 07/13/17 22:08 Last Admin: 07/13/17 22:25 Dose: 40 mg Vancomycin HCl (Pharmacy To Dose - Vancomycin) 1 dose .XX ASDIRECTED [facility] - Exam Physical Findings Comments:: GENERAL: Adult male sitting in bedside chair in no acute distress. HEENT: Normocephalic, atraumatic. Conjunctiva clear. Mucous membranes moist, posterior pharynx unremarkable. NECK: Supple, no masses. CV: Regular rate and rhythm, no murmurs, rubs, or gallops. 2+ radial pulses. PULMONARY: Normal effort, clear to auscultation bilaterally, no wheezes, rales, or rhonchi. ABDOMEN: Positive bowel sounds, soft, nontender, nondistended. MUSCULOSKELETAL: Moves all extremities. NEUROLOGICAL: No obvious deficits. DERMATOLOGIC: RLE with 1+ pitting edema of the distal leg, ankle, and foot with overlying redness, but no warmth, and with interval improvement in area affected since evaluation yesterday. Right great toe with 1.25cm dried eschar without drainage and no tenderness to palpation of toe. Diffuse papular blanching dermatitis of bilateral upper extremities, torso, and bilateral lower extremities with interval improvement. PSYCHIATRIC: Alert, interactive, pleasant. - Problem List Review Problem List Initiated/Reviewed/Updated: Yes - My Orders Last 24 Hours: My Active Orders 07/15/17 09:42 diphenhydrAMINE [Benadryl] 50 mg PO Q4H PRN 07/15/17 09:45 glipiZIDE [Glucotrol XL] 10 mg PO WITHBREAKFAST 07/15/17 10:00 Linezolid [Zyvox] 600 mg PO Q12H 07/15/17 15:16 Activity as Tolerated [RC] .Routine 07/15/17 21:00 Famotidine [Pepcid] 20 mg PO BID - Assessment Assessment:: 66yoM with hx of uncontrolled DMT2, HTN, HLD, CAD, and obesity admitted 07/12/17 for RLE diabetic foot ulcer and cellulitis. # RLE diabetic foot ulcer and cellulitis: Started about 1 week prior to admission. Was started on clindamycin and levofloxacin 3 days prior to admission without much improvement. XR without abnormality. Venous ultrasound without abnormality. Initially started on vancomycin and metronidazole. Improvement in cellulitis and R toe without drainage or progression of eschar. Due to concern for drug-induced dermatitis (see below), vancomycin was changed to linezolid on 07/13. Metronidazole discontinued 07/14 due to Staph. aureus on wound culture, which is pansensitive, but unfortunately he has several antibiotic allergies with recent extensive dermatitis for which he is reasonably very leery about starting anything he hasn't been on in the past so will plan for transition to linezolid po tonight and monitor. Blood cultures with no growth x3 days. Stable WBC and ESR, likely secondary to prednisone, as below. Recheck CBC and ESR tomorrow. Provided walking shoe and in order to prevent further irritation to great toe and encourage ambulation. Plan for outpatient [facility] and podiatry consultation. # Drug eruption: Diffuse dermatitis consistent with drug eruption. This was mildly present on admission and clindamycin was subsequently added to his allergies. Despite cessation of clindamycin, the dermatitis became more widespread and severe, likely secondary to vancomycin which he had never had before. Symptomatic treatment with H1 and H2 antagonists diphenhydramine and famotidine initiated, but not adequate at symptom control so prednisone started. Discussed the hesitation of steroids given current infection and uncontrolled diabetes, but given the severity of the eruption and lack of successful control with non-steroid medications, proceeded with prednisone 40mg daily starting 07/13/17. Continue prednisone, famotidine, and diphenhydramine. Plan for outpatient antibiotic allergy testing. # DMT2: Uncontrolled with A1c 9.1 and BGs initially in the 200s despite home regimen of insulin detemir and high dose ISS. Initially held metformin; restarted 07/14/17. Held glipizide for a day given hx sulfa allergy and possible relation with drug eruption, but due to him stating he has been on this for quite some time, will reinitiate. Have increased insulin detemir to 80 units given the poor control and worsening due to steroids. Continue monitoring. # Anemia: New onset, normocytic anemia without known active bleeding. Stool guiac negative. Iron panel, B12, and folate pending. Improved today; recheck tomorrow. Continue B12 supplementation and MV. Chronic conditions: # CAD: S/P PCI to LAD. No angina. Continue Plavix, ASA, statin, and BB. # HTN: BPs well controlled. Continue HCTZ, lisinopril, and metoprolol succinate. # HLD: Continue atorvastatin. # Obesity: BMI 36. # Anxiety: Continue clonazepam prn. Hospitalization details: # FEN: No IVF. Electrolytes normal. Diabetic/cardiac diet. # PPX: High risk of DVT=Heparin 5000un q12h. # Code status: Full. # Emergency contact: . # Disposition: Continue on inpatient status. Anticipate possible discharge to home as early as tomorrow if clinical situation continues to improve.
[2017-07-16] MEDS: Acetaminophen 500 MG Tab PO PRN (06:11)
[2017-07-16] MEDS: glipiZIDE 5 MG Tab.ER PO SCH (07:40)
[2017-07-16] MEDS: predniSONE 20 MG Tab PO SCH (07:41)
[2017-07-16] MEDS: Heparin Sodium 5,000 Units/ML Vial SUBCUT SCH (07:41)
[2017-07-16] MEDS: Insulin Aspart 100 Units/ML 3 ML Pen SUBCUT SCH ×2 (08:04→11:56)
[2017-07-16] MEDS: metFORMIN 500 MG Tab.ER PO SCH (08:05)
[2017-07-16] MEDS: Aspirin 81 MG Tab.EC PO SCH (08:06)
[2017-07-16] MEDS: Cyanocobalamin (Vitamin B12) 500 MCG Tab PO SCH (08:06)
[2017-07-16] MEDS: Famotidine 20 MG Tab PO SCH (08:06)
[2017-07-16] MEDS: Clopidogrel 75 MG Tab PO SCH (08:06)
[2017-07-16] MEDS: Multivitamins with Minerals/Iron/Folic Acid/Lycopene Tab PO SCH (08:06)
[2017-07-16] MEDS: Hydrochlorothiazide 25 MG Tab PO SCH (08:08)
[2017-07-16] MEDS: Lisinopril 20 MG Tab PO SCH (08:08)
[2017-07-16] MEDS: Metoprolol Succinate 50 MG Tab.ER PO SCH (08:09)
[2017-07-16 08:10] VITALS: BP 138/71
[2017-07-16] MEDS: Linezolid 600 MG Tab PO SCH (10:16)
--- NOTE | 2017-07-19 00:39 | PCM.DCSUM1 ---
Discharge Summary - Hospital Course Free Text/Narrative:: 66yoM with hx of uncontrolled DMT2, HTN, HLD, CAD, and obesity admitted 07/12/17 from clinic for RLE diabetic foot ulcer and cellulitis. He had excellent improvement in his RLE ulcer and cellulitis throughout his stay , though the course was complicated by a severe drug dermatitis, as detailed below. Improvement in blood sugars, for which he had poor baseline control, was also noted throughout his stay and he was deemed ready for discharge on with plan to have close outpatient follow-up and ongoing management for RLE ulcer and cellulitis, drug dermatitis, DMT2, and anemia, as detailed below in problem-based hospital course and plan: # RLE diabetic foot ulcer and cellulitis: Started about 1 week prior to admission. Was started on clindamycin and levofloxacin 3 days prior to admission without much improvement. XR without abnormality. Venous ultrasound without abnormality. Initially started on vancomycin and metronidazole. Improvement in cellulitis and R toe without drainage or progression of eschar. Due to concern for drug-induced dermatitis (see below), vancomycin was changed to linezolid on 07/13. Metronidazole discontinued 07/14 due to Staph. aureus on wound culture, which is pansensitive, but unfortunately he has several antibiotic allergies with recent extensive dermatitis for which he was reasonably very leery about starting anything he hasn't been on in the past so transitioned to linezolid po the night prior to discharge and ongoing improvement was noted. Blood cultures with no growth x4 days. Stable WBC and ESR , likely secondary to prednisone, as below. Provided walking shoe in order to prevent further irritation to great toe. Discharged home with 7 day course of linezolid. Close clinical follow-up to ensure ongoing improvement. Plan for outpatient [facility] and podiatry consultation. # Drug eruption: Diffuse dermatitis consistent with drug eruption. This was mildly present on admission and clindamycin was subsequently added to his allergies. Despite cessation of clindamycin, the dermatitis became more widespread and severe, likely secondary to vancomycin which he had never had before. Symptomatic treatment with H1 and H2 antagonists diphenhydramine and famotidine initiated, but not adequate at symptom control so prednisone started. Discussed the hesitation of steroids given current infection and uncontrolled diabetes, but given the severity of the eruption and lack of successful control with non-steroid medications, proceeded with prednisone 40mg daily starting 07/13/17. Continued prednisone with taper, famotidine, and diphenhydramine. Close clinical follow-up to ensure ongoing improvement. Plan for outpatient antibiotic allergy testing. # DMT2: Uncontrolled with A1c 9.1 and BGs initially in the 200s despite home regimen of insulin detemir and high dose ISS. Initially held metformin; restarted 07/14/17. Held glipizide for a day given hx sulfa allergy and possible relation with drug eruption, but due to him stating he has been on this for quite some time, will reinitiate. Have increased insulin detemir to 80 units given the poor control and worsening due to steroids. Continued home metformin and glipizide, in addition to increased dose of insulin detemir and high dose ISS at discharge. Continue close monitoring as outpatient. # Anemia: New onset, normocytic anemia without known active bleeding. Stool guiac negative. Iron panel, B12, and folate pending and recommend further work- up as outpatient. Continue B12 supplementation and MV. Chronic conditions: # CAD: S/P PCI to LAD. No angina. Continued Plavix, ASA, statin, and BB. # HTN: BPs well controlled. Continued HCTZ, lisinopril, and metoprolol succinate. # HLD: Continued atorvastatin. # Obesity: BMI 36. # Anxiety: Continued clonazepam prn. - Discharge Data Discharge Date: 07/16/17 Discharge Disposition: Home, Self-Care 01 Condition: Good - Patient Instructions Diet: Diabetic Diet Activity: As Tolerated Showering/Bathing: May Shower Wound/Incision Care: Keep Operative Site/Wound Site Clean and Dry Notify Provider of: Fever, Increased Pain, Swelling and Redness, Drainage, Nausea and/or Vomiting - Discharge Plan Prescriptions/Med Rec: Famotidine [Pepcid] 20 mg PO BID #30 tablet Insulin Detemir [Levemir] 80 unit SQ QPM 30 Days ml Linezolid [Zyvox] 600 mg PO Q12H #14 tablet Prednisone [IJD: predniSONE] 40 mg PO WITHBREAKFAST #15 tablet Home Medications: Home Meds Ascorbic Acid [Vitamin C] 1,000 mg PO BID 01/31/16 [History] Aspirin [Halfprin] 81 mg PO DAILY 01/31/16 [History] Cholecalciferol (Vitamin D3) [Vitamin D3] 3,000 units PO DAILY 01/31/16 [History ] Cyanocobalamin (Vitamin B-12) [B-12] 1,000 mcg PO DAILY 01/31/16 [History] Multivitamin [Multivitamins] 1 tab PO DAILY 01/31/16 [History] glipiZIDE [Glipizide Xl] 10 mg PO DAILY 01/31/16 [History] metFORMIN [Glucophage] 1,000 mg PO BIDMEALS 01/31/16 [History] ClonazePAM [KlonoPIN] 0.5 mg PO BEDTIME PRN 07/12/17 [History] Clopidogrel [Plavix] 75 mg PO DAILY 07/12/17 [History] Lisinopril/Hydrochlorothiazide [Lisinopril-Hctz 20-25 mg Tab] 1 tab PO DAILY 06/20 [History] Metoprolol Succinate [Toprol XL] 50 mg PO DAILY 07/12/17 [History] Nitroglycerin [Nitrostat] 0.4 mg SL Q5M PRN 07/12/17 [History] atorvaSTATin [Lipitor] 40 mg PO BEDTIME 07/12/17 [History] Famotidine [Pepcid] 20 mg PO BID #30 tablet 07/16/17 [Rx] Insulin Aspart [NovoLOG] 0 unit SUBCUT WITHMEALSANDBED pen 07/16/17 [Rx] Insulin Detemir [Levemir] 80 unit SQ QPM 30 Days ml 07/16/17 [Rx] Linezolid [Zyvox] 600 mg PO Q12H #14 tablet 07/16/17 [Rx] Prednisone [IJD: predniSONE] 40 mg PO WITHBREAKFAST #15 tablet 07/16/17 [Rx] diphenhydrAMINE [Benadryl] 50 mg PO Q4H PRN cap 07/16/17 [Rx] Referrals: Mary Jo Toure PA-C [Physician Director Of Exhibits] - (As scheduled.) - General Info Subjective Update: Mr. Ortiz reports feeling well this morning. States he feels the best he has since admission. Slept well last night. Rash has continued to have great improvement, now being much less itchy and widespread. Right foot continues to improve without any further drainage from the toe and improvement in redness of the foot. Denies fever, chills, headache, sore throat, tongue swelling, shortness of breath, chest pain, or other new concerns. - Patient Data Vitals - Most Recent: Last Vital Signs Temp 37.1 C 07/16/17 06:18 Pulse 71 07/16/17 08:09 Resp 16 07/16/17 06:18 BP 138/71 07/16/17 08:09 Pulse Ox 98 07/16/17 07:03 Weight - Most Recent: 135.624 kg Med Orders - Current: Current Medications Discontinued Medications Acetaminophen (Tylenol Extra Strength) 500 mg PO Q4H PRN PRN Reason: Pain/Fever Last Admin: 07/16/17 06:11 Dose: 500 mg Aspirin (Halfprin) 81 mg PO DAILY [facility] Last Admin: 07/16/17 08:06 Dose: 81 mg Atorvastatin Calcium (Lipitor) 40 mg PO BEDTIME [facility] Last Admin: 07/15/17 21:29 Dose: 40 mg Calamine/Zinc Oxide (Calamine Lotion) 0 ml TOP ASDIRECTED PRN PRN Reason: Itching Last Admin: 07/14/17 16:00 Dose: 1 applic Clonazepam (Klonopin) 0.5 mg PO BEDTIME PRN PRN Reason: Insomnia Last Admin: 07/13/17 22:25 Dose: 0.5 mg Clopidogrel Bisulfate (Plavix) 75 mg PO DAILY [facility] Last Admin: 07/16/17 08:06 Dose: 75 mg Cyanocobalamin (Vitamin B12) 1,000 mcg PO DAILY [facility] Last Admin: 07/16/17 08:06 Dose: 1,000 mcg Diphenhydramine HCl (Benadryl) 25 mg PO Q6H PRN PRN Reason: Itching Diphenhydramine HCl (Benadryl) 50 mg IVPUSH Q8H PRN PRN Reason: Itching Last Admin: 07/13/17 10:38 Dose: 50 mg Diphenhydramine HCl (Benadryl) 50 mg IVPUSH Q6H PRN PRN Reason: Itching Last Admin: 07/13/17 18:02 Dose: 50 mg Diphenhydramine HCl (Benadryl) 50 mg IVPUSH Q4H PRN PRN Reason: Itching Last Admin: 07/14/17 04:58 Dose: 50 mg Diphenhydramine HCl (Benadryl) 50 mg PO Q4H PRN PRN Reason: Itching Last Admin: 07/15/17 21:30 Dose: 50 mg Famotidine (Pepcid) 20 mg IVPUSH BID [facility] Last Admin: 07/15/17 08:55 Dose: 20 mg Famotidine (Pepcid) 20 mg PO BID [facility] Last Admin: 07/16/17 08:06 Dose: 20 mg Glipizide (Glucotrol Xl) 10 mg PO ACBREAKFAST [facility] Last Admin: 07/13/17 07:56 Dose: 10 mg Glipizide (Glucotrol Xl) 10 mg PO WITHBREAKFAST [facility] Last Admin: 07/16/17 07:40 Dose: 10 mg Heparin Sodium (Porcine) (Heparin Sodium) 5,000 units SUBCUT Q12H [facility] Last Admin: 07/16/17 07:41 Dose: 5,000 units Hydrochlorothiazide (Hydrochlorothiazide) 25 mg PO DAILY [facility] Last Admin: 07/16/17 08:08 Dose: 25 mg Hydroxyzine HCl (Atarax) 25 mg PO Q4H PRN PRN Reason: Itching Hydroxyzine HCl (Atarax) 25 mg PO Q6H PRN PRN Reason: Itching Last Admin: 07/13/17 06:32 Dose: 25 mg Vancomycin HCl 1.5 gm/ Sodium (Chloride) 280 mls @ 112 mls/hr IV Q12H [facility] Last Admin: 07/12/17 14:58 Dose: 112 mls/hr Vancomycin HCl 1.5 gm/ Sodium (Chloride) 280 mls @ 112 mls/hr IV Q12H [facility] Last Admin: 07/13/17 06:30 Dose: 112 mls/hr Metronidazole 500 mg/ Premix 100 mls @ 100 mls/hr IV Q8H [facility] Last Admin: 07/14/17 14:14 Dose: 100 mls/hr Sodium Chloride (Normal Saline) 250 mls @ 20 mls/hr IV DAILY@1400 [facility] Last Admin: 07/14/17 14:14 Dose: 20 mls/hr Linezolid (Zyvox) 300 mls @ 150 mls/hr IV Q12H [facility] Last Admin: 07/15/17 09:35 Dose: Not Given Linezolid 600 mg/ Premix 300 mls @ 300 mls/hr IV ONETIME ONE Stop: 07/15/17 10:59 Last Admin: 07/15/17 10:12 Dose: 300 mls/hr Insulin Aspart (Novolog) 0 unit SUBCUT TIDAC PRN; Protocol PRN Reason: Blood Glucose Last Admin: 07/12/17 17:51 Dose: 6 unit Insulin Aspart (Novolog) 0 unit SUBCUT TIDMEALS [facility] PRN Reason: Protocol Last Admin: 07/14/17 07:57 Dose: 12 units Insulin Aspart (Novolog) 0 unit SUBCUT WITHMEALSANDBED [facility] PRN Reason: Protocol Last Admin: 07/16/17 11:56 Dose: 9 units Insulin Detemir (Levemir) 68 unit SUBCUT BEDTIME [facility] Last Admin: 07/12/17 21:03 Dose: 68 units Insulin Detemir (Levemir) 74 unit SUBCUT BEDTIME [facility] Last Admin: 07/13/17 21:06 Dose: 74 units Insulin Detemir (Levemir) 80 unit SUBCUT BEDTIME [facility] Last Admin: 07/15/17 21:23 Dose: 80 units Linezolid (Zyvox) 600 mg PO Q12H [facility] Last Admin: 07/16/17 10:16 Dose: 600 mg Lisinopril (Prinivil) 20 mg PO DAILY [facility] Last Admin: 07/16/17 08:08 Dose: 20 mg Metformin HCl (Glucophage Xr) 1,000 mg PO BIDMEALS [facility] Last Admin: 07/16/17 08:05 Dose: 1,000 mg Metoprolol Succinate (Toprol Xl) 50 mg PO DAILY [facility] Last Admin: 07/16/17 08:09 Dose: 50 mg Multivitamins/Minerals (Centrum) 1 tab PO DAILY [facility] Last Admin: 07/16/17 08:06 Dose: 1 tab Nitroglycerin (Nitrostat) 0.4 mg SL Q5M PRN PRN Reason: Chest Pain Omeprazole (Omeprazole) 20 mg PO DAILY [facility] Prednisone (Prednisone) 40 mg PO ONETIME ONE Stop: 07/13/17 22:08 Last Admin: 07/13/17 22:25 Dose: 40 mg Prednisone (Prednisone) 40 mg PO WITHBREAKFAST [facility] Last Admin: 07/16/17 07:41 Dose: 40 mg Sodium Chloride (Syrex Flush) 5 ml FLUSH Q8HR PRN PRN Reason: Keep Vein Open Last Admin: 07/15/17 08:57 Dose: 5 ml Vancomycin HCl (Pharmacy To Dose - Vancomycin) 1 dose .XX ASDIRECTED [facility]LER - Exam Physical Findings Comments:: GENERAL: Adult male sitting in bedside chair in no acute distress. HEENT: Normocephalic, atraumatic. Conjunctiva clear. Mucous membranes moist. NECK: Supple, no masses. CV: Regular rate and rhythm, no murmurs, rubs, or gallops. 2+ radial pulses. PULMONARY: Normal effort, clear to auscultation bilaterally, no wheezes, rales, or rhonchi. ABDOMEN: Positive bowel sounds, soft, nontender, nondistended. MUSCULOSKELETAL: Moves all extremities. NEUROLOGICAL: No obvious deficits. DERMATOLOGIC: RLE with 1+ pitting edema of the distal leg, ankle, and foot with overlying redness, but no warmth, and with interval improvement in area affected since evaluation yesterday. Right great toe with 1.25cm dried eschar without drainage and no tenderness to palpation of toe. Diffuse papular blanching dermatitis of bilateral upper extremities, torso, and bilateral lower extremities with ongoing interval improvement. PSYCHIATRIC: Alert, interactive, pleasant. *Q Meaningful Use (DIS) - VTE *Q VTE Criteria *Q: - Stroke *Q Stroke Criteria *Q: - AMI *Q AMI Criteria *Q:
== END 2017-07-16 12:17 | disposition home or self-care (01) | DRG 639 ==
LOC: KA.MS 12:41
PROVIDERS: ADMIT Nurse Practitioner Family; ATTEND Family Medicine
DX: E11.621 Type 2 diabetes mellitus with foot ulcer (principal); L97.529 Non-pressure chronic ulcer of other part of left foot with unspecified severity; E11.65 Type 2 diabetes mellitus with hyperglycemia; B95.61 Methicillin susceptible Staphylococcus aureus infection as the cause of diseases classified elsewhere; L03.032 Cellulitis of left toe; L27.0 Generalized skin eruption due to drugs and medicaments taken internally; D64.9 Anemia, unspecified; Z68.36 Body mass index [BMI] 36.0-36.9, adult; E66.9 Obesity, unspecified; I10 Essential (primary) hypertension; E78.5 Hyperlipidemia, unspecified; I25.10 Atherosclerotic heart disease of native coronary artery without angina pectoris; I25.2 Old myocardial infarction; F41.9 Anxiety disorder, unspecified; Z79.899 Other long term (current) drug therapy; Z88.0 Allergy status to penicillin; Z88.8 Allergy status to other drugs, medicaments and biological substances; Z95.5 Presence of coronary angioplasty implant and graft
CPT/HCPCS: 36415; 73620-RT; 80048; 80053; 82272; 82607; 82728; 82746; 82962; 83540; 83550; 84550; 85025; 85651; 87040; 87070; 87077; 87186; 93971; A9270-GY; J1200; J1644; J1815-GY; J2020; J3370; J7050; S0028